=== PATIENT | female | born 1980 | race Caucasian/White ===

== ENCOUNTER 2019-02-05 16:11 | Emergency (ER) | payer OTHER, SELFPAY ==
[2019-02-05 16:12] VITALS: BP 134/80; PULSE 93; RESP 17; TEMP 36.8; O2SAT 97; BMI 42.7
--- NOTE | 2019-02-05 16:58 | ED.VIS.GEN ---
History of Present Illness Chief Complaint: Lower Extremity Injury Informant: Patient Onset: Month(s) - 1 Context: Gradual Onset Timing: Continuous Current Severity: Mild Maximum Severity: Moderate Narrative: Patient is a 38-year-old female with no significant past medical history presenting with 1 month of persistent left foot pain. She states it is at the base of her fourth and fifth toes. 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 Patient wears basic black sneakers at work. Patient has not been taking anything for the pain at home. She denies any injury to the area. She denies any associated numbness or tingling. The pain does not radiate. Is aching in nature. Patient finally came in today because family members were concerned of the persistence of the pain. Patient is a pain is worse with walking and standing on it. Is better with rest. She denies any associated swelling. She denies any other complaints at this time. Past Medical History - Allergies and Home Meds Allergies/Adverse Reactions: Allergies acetaminophen [From Vicodin] Adverse Reaction (Verified 02/05/19 16:12) Nausea hydrocodone [From Vicodin] Adverse Reaction (Verified 02/05/19 16:12) Nausea Penicillins [PCN] Adverse Reaction (Verified 02/05/19 16:12) Nausea Primary Care Physician: Vipul Garcia MD [Primary Care Provider] - Smoking Status: Never smoker Review of Systems All systems negative except as indicated Musculoskeletal: Reports: Extremity Pain - Left foot Physical Exam Vital Signs/Narrative: Vital Signs Temp Pulse Resp BP Pulse Ox 02/05/19 16:12 98.2 F 93 17 134/80 H 97 Inital Vital Signs reviewed: Yes General: Well nourished, Well developed, No Acute Distress Head: Normocephalic, Atraumatic Eyes: Perrl, EOMI ENT: Moist mucous membranes, No rhinorrhea Neck: Supple, Nontender Cardiovascular: Regular rate, Regular rhythm, No murmurs Respiratory: No distress, CTA bilaterally, Chest nontender Abdomen: Soft, Nontender, Nondistended, Normal bowel sounds Back: Nontender, Normal Inspection Extremities: No edema, - - Tenderness palpation over left fourth and fifth metacarpals, normal range of motion, no tenderness over the fibular head or ankle. No deformity, normal Castillo test. Negative for: Edema Skin: Normal color, No rash Neurological: Alert, Oriented x3, Cranial nerves II-XII grossly intact, Normal Strength, Normal Sensation Psychological: Normal affect, Normal Mood Diagnostic/Tx/Re-eval Diagnostic Data Foot X-Ray 02/05/19 17:05 IMPRESSION: No fracture or dislocation. Degenerative changes described above. Electronically Signed: Jonnie Sanders, at 17:49 EDT Tel , Service support , - Medical Decision Making She is evaluated for 1 month of atraumatic left foot pain. She appears nontoxic in no acute distress. She has normal vital signs. She declines any pain medication in the emergency room. Physical exam is notable for mild tenderness over the fourth and fifth metatarsals but no deformity or swelling. X-ray does not show any acute process. Patient does work on her feet and likely would benefit from more supportive shoes as well as rice therapy. She does not have evidence of acute fracture. I do not suspect any emergent process at this time. She is encouraged to follow-up with her primary care doctor if this persist. Patient is counseled on signs and symptoms requiring return to the emergency room. Patient verbalizes agreement and understand this plan. Patient discharged home in stable and improved condition. ED Disposition - Plan for ED Patient: Disposition: Home or Assisted Living Diagnosis: Left foot pain Instructions: Wearing Proper Shoes Referrals: Vipul Garcia MD [Primary Care Provider] - Additional Instructions: Try to stay off the foot is much as possible. Try to get more supportive shoes or better so insert. Take Ibuprofen as needed for pain. Follow-up with your primary care provider if this is not improved. Return to emergency room if you develop any worsening symptoms or develop a fever, significant swelling or difficulty walking.
--- NOTE | 2019-02-05 17:05 | RAD_ITS ---
STUDY: X-RAY - LEFT FOOT CLINICAL: Female, 38 years old. Pain TECHNIQUE: 3 view(s) of the foot. COMPARISON: None. FINDINGS: There is no evidence of fracture or dislocation. Mild degenerative changes are present at the first MTP joint. Plantar calcaneus spurring is present. Hypertrophic changes are present at the Achilles tendon insertion. There are no radiodense foreign bodies. RAD/Foot min 3 Views IMPRESSION: No fracture or dislocation. Degenerative changes described above. Electronically Signed: Jonnie Sanders, at 17:49 EDT Tel , Service support ,
== END 2019-02-05 18:13 | disposition home or self-care (01) ==
PROVIDERS: Emergency Provider Emergency Medicine; Family Provider Family Medicine; PCP Family Medicine
DX: M79.672 Pain in left foot (principal)
CPT/HCPCS: 73630; 99282

== ENCOUNTER 2019-04-25 15:52 | Emergency (ER) | payer OTHER, SELFPAY ==
[2019-04-25 15:53] VITALS: BP 129/84; PULSE 79; RESP 18; TEMP 36.6; O2SAT 99; BMI 42.8
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
== END 2019-04-25 17:49 | disposition home or self-care (01) ==
PROVIDERS: Emergency Provider Emergency Medicine; Family Provider Family Medicine; PCP Family Medicine
DX: S29.012A Strain of muscle and tendon of back wall of thorax, initial encounter (principal); S16.1XXA Strain of muscle, fascia and tendon at neck level, initial encounter; S60.212A Contusion of left wrist, initial encounter; V49.88XA Car occupant (driver) (passenger) injured in other specified transport accidents, initial encounter; Y93.89 Activity, other specified; Y92.410 Unspecified street and highway as the place of occurrence of the external cause
CPT/HCPCS: 72072; 73110; 99282

== ENCOUNTER 2022-01-17 21:21 | Emergency (ER) | payer OTHER, SELFPAY ==
[2022-01-17 21:22] VITALS: BP 120/96; PULSE 89; RESP 16; TEMP 36.4; O2SAT 98; BMI 42.0
--- NOTE | 2022-01-17 22:17 | US_ITS ---
INDICATION: pelvic pain-RLQ EXAMINATION: US Transvaginal Non-OB TECHNIQUE: Transvaginal (for optimal evaluation of the adnexa) pelvic ultrasound was performed. Grayscale, spectral waveform, and color flow Doppler evaluation of the adnexa. COMPARISON: None. FINDINGS: UTERUS: Anteverted. The uterus measures 11.5 x 6.4 x 4.1 cm. There is no uterine mass. There are subendometrial cysts. There are nabothian cysts. The endometrial stripe measures 1.8 cm in AP diameter which is within normal limits. RIGHT OVARY: Measures 2.7 x 2.5 x 2.1 cm. Non-enlarged, normal echogenicity. There is normal arterial inflow and venous outflow present in the right ovary. LEFT OVARY: Not visualized. FREE FLUID: None. US/Transvaginal Non- IMPRESSION: Nonvisualization of the left ovary. Otherwise normal uterus and right ovary. Electronically Signed: Solo Prescott MD at 23:44 EDT ,
[2022-01-17 22:31] LABS: Bacteria 0 SEEN /hpf (None Seen); Mucous, Urine 0 SEEN /hpf (<or=2+); Red Blood Cells-Urine 0 SEEN /hpf (0-5); Squamous Epithelial Cells - UA 0 SEEN /hpf (5-10); White Blood Cells 0 SEEN /hpf (0-5)
[2022-01-17 22:35] LABS: Color, Urine Yellow (Yellow); Glucose, Dipstick Normal (Normal); Ketone-Dipstick Negative (Negative); Leukocyte Esterase-Dipstick Negative /ul (Negative); Nitrite-Dipstick Negative (Negative); Occult Blood-Urine Negative /ul (Negative); Protein-Dipstick 15 mg/dl (Negative); Specific Gravity, Urine 1.025 (1.002-1.030); Urine Bilirubin Dipstick Negative (Negative); Urine Clarity Clear (Clear); Urine Urobilinogen Normal (Normal)
[2022-01-17 22:43] LABS: Internal QC Validated? YES +Cl - CLEAR BKGD; Pregnancy, Urine Negative Negative
[2022-01-17 22:44] LABS: Absolute Lymphocyte Count 3.16 X10^3/uL (0.83-4.51); Absolute Neutrophil Count 8.2 X10^3/uL (2.0-7.7); Basophil# 0.06 X10^3/uL; Basophil% 0.5 % (0-1); Eosinophil# 0.32 X10^3/uL; Eosinophils% 2.5 % (0-5); Hematocrit 40.3 % (37-47); Hemoglobin 13.5 g/dL (12.0-15.0); Lymphocyte # 3.16 X10^3/ul (0.83-4.51); Lymphocyte % 25.1 % (19-41); Mean Corp Hgb Conc 33.5 g/dL (32-36); Mean Corpuscular Hgb 29.5 pg (27.0-32.0); Mean Platelet Vol. 9.7 fl (6.2-12.0); Monocyte# 0.81 X10^3/uL; Monocyte% 6.4 % (0-10); NRBC Flagged by Analyzer 0 % (0-5); Neutrophil # 8.19 X10^3/uL (2.7-7.7); Neutrophil % 64.9 % (47-70); Platelet Count 268 K/mm3 (150-450); RBC Distribution Width CV 12.1 % (11.6-14.6); RBC Distribution Width SD 38.9 fl (35.1-43.9); Red Blood Count 4.58 M/mm3 (4.2-5.4); White Blood Count 12.6 K/mm3 (4.4-11.0)
[2022-01-17 23:02] LABS: AST(SGOT) 13 U/L (15-37); Alanine Aminotransfer ALT/SGPT 26 U/L (13-56); Albumin, Serum 3.7 g/dL (3.2-5.0); Alkaline Phosphatase 73 U/L (45-117); Anion Gap 6 (5-15); BUN 16 mg/dL (7-18); BUN/Creat Ratio 22.7 RATIO (10-20); Bilirubin, Direct 0.08 mg/dL (0.00-0.30); Calcium,Total 9.4 mg/dL (8.5-10.1); Chloride 107 mmol/L (98-107); EST Glomerular Filtration Rate 96 mL/min (>60); Est Glom Filt Rate - Afr Amer 117 mL/min (>60); Estimated Creatinine Clearance 74.43 ml/min; Globulin 3.6 g/dL (2.2-4.2); Glucose 98 mg/dL (74-106); Lipase 67 U/L (73-393); Potassium 4.5 mmol/L (3.5-5.1); Protein, Total 7.3 g/dL (6.4-8.2); Sodium Level 141 mmol/L (136-145)
[2022-01-17 23:40] VITALS: BP 128/84; PULSE 73; RESP 16; O2SAT 98
--- NOTE | 2022-01-18 00:15 | EDS_ITS ---
HPI History of Present Illness Chief Complaint: Abd Pain Narrative Narrative: Patient is a 41-year-old female with no significant past medical history. She states with her last 3 menstrual cycles she had increased pain in the right lower quadrant that would last 1 to 2 days and then resolve with passing of her menstrual cycle. She states today she was at work and while there developed sudden onset right-sided abdominal pain. She states she waited for the pain to pass but it did not do so and therefore she decided to come in for evaluation. Patient states there was no trauma or excessive activity. She states she is 2 weeks out from her menstrual cycle. She denies any fevers chills nausea vomiting diarrhea dysuria or concern for . She reports that upon arrival to the ER the pain has resolved. PFSH PFSH Medical History no medical history Home Medications NK 04/25/19 [History Last Taken Unknown] Allergy/AdvReac Type Severity Reaction Status Date / Time hydrocodone [From Vicodin] AdvReac Nausea Verified 01/17/22 21:26 Penicillins [PCN] AdvReac Nausea Verified 01/17/22 21:26 Social History Smoking Status: Never smoker ROS ROS ED Constitutional Constitutional ED: Denies chills or fever(s) ENT ENT ED: Denies sore throat Cardiovascular Cardiovascular: Denies chest pain Respiratory/Chest Respiratory/Chest: Denies cough or dyspnea Gastrointestinal Gastrointestinal: Reports abdominal pain; Denies diarrhea, nausea or vomiting Genitourinary Genitourinary ED: Denies dysuria or hematuria Musculoskeletal Musculoskeletal: Denies back pain or myalgias Integumentary Denies rash Neurologic Neurologic: Denies headache(s) Hematologic/Lymphatic Hematologic/Lymphatic: Denies easy bleeding or easy bruising EXAM Physical Exam Const Vital Signs: 01/17/22 21:22 01/17/22 23:40 Temperature 97.6 F L Temperature Source Temporal Pulse Rate 89 73 Respiratory Rate 16 16 Blood Pressure 120/96 H 128/84 H Blood Pressure Mean 104 98 Pulse Ox 98 98 Oxygen Delivery Method Room Air Room Air Positive well nourished, well developed and obese General Appearance ED: well developed Nutritional Appearance: obese HEENT Reports moist mucous membranes Eyes PERRL and EOMs intact bilaterally Neck supple Resp normal respiratory effort and clear to auscultation bilaterally Cardio regular rate and regular rhythm Rate: other Other Details: Radial pulses are plus 2 out of 4 bilaterally are equal and symmetric GI non-distended and no masses GI Narrative: Abdomen is obese soft and nondistended with normoactive bowel sounds. There is pain with palpation in the right upper mid and lower quadrant of the abdomen without voluntary guarding or rigidity. Negative heel strike psoas and obturator signs. Auscultation: normoactive bowel sounds Palpation: soft Back/Spine no CVA tenderness Extremity normal to inspection Neuro oriented x3, CN's II-XII intact bilaterally and no sensory deficits noted Sensorium / Orientation: alert Psych mental status grossly normal Skin no rashes or lesions noted MDM MDM MDM Narrative Medical decision making narrative: Patient presented to the ER with stable vitals and reported spontaneous resolution of her pain. On exam there was reproducible right-sided abdominal pain but it was not localized to the right lower quadrant and there was negative heel strike psoas and obturator signs. Patient had concern for ovarian cyst as there is a family history of this and she had this type of pain with her last 3 menstrual cycles. Therefore elected to perform a pelvic ultrasound and check basic abdominal labs. Labs showed slight leukocytosis at 12.6 but otherwise no clinically significant findings. The patient did not have CVA pain and there was no blood in her urine going against kidney stone. Also she had no signs of sterile pyuria and that coupled with no fever and spontaneous resolution of pain go against possible appendicitis. On reevaluation the patient's pain has resolved with palpation. We discussed possible CT scan to look for a kidney stone or intestinal infection but as the patient's pain has resolved and we have ruled out ovarian cyst which was her main concern she wishes to go home and will follow-up on an outpatient basis. Lab Data Attestation: I reviewed the patient's lab results. Labs: Laboratory Results - last 24 hr 01/17/22 01/17/22 01/17/22 22:20 22:25 22:25 WBC 12.6 H RBC 4.58 Hgb 13.5 Hct 40.3 MCV 88.0 MCH 29.5 MCHC 33.5 RDW Std Deviation 38.9 RDW Coeff of Ritika 12.1 Plt Count 268 MPV 9.7 Immature Gran % (Auto) 0.600 Neut % (Auto) 64.9 Lymph % (Auto) 25.1 Anson % (Auto) 6.4 Eos % (Auto) 2.5 Baso % (Auto) 0.5 Absolute Neuts (auto) 8.2 H Absolute Lymphs (auto) 3.16 Nucleated RBC % 0 Sodium 141 Potassium 4.5 Chloride 107 Carbon Dioxide 28.0 Anion Gap 6 BUN 16 Creatinine 0.70 Estim Creat Clear Calc 74.43 Est GFR (MDRD) Af Amer 117 Est GFR (MDRD) Non-Af 96 BUN/Creatinine Ratio 22.7 H Glucose 98 Calcium 9.4 Total Bilirubin 0.30 Direct Bilirubin 0.08 AST 13 L ALT 26 Alkaline Phosphatase 73 Total Protein 7.3 Albumin 3.7 Globulin 3.6 Lipase 67 L Urine Color Yellow Urine Clarity Clear Urine pH 5.0 Ur Specific Llewellyn 1.025 Urine Protein 15 H Urine Glucose (UA) Normal Urine Ketones Negative Urine Occult Blood Negative Urine Nitrite Negative Urine Bilirubin Negative Urine Urobilinogen Normal Ur Leukocyte Esterase Negative Urine RBC 0 SEEN Urine WBC 0 SEEN Ur Squamous Epith Cells 0 SEEN Urine Bacteria 0 SEEN Urine Mucus 0 SEEN Urine Test Negative Radiography Diagnostic Testing: Clinical Impression(s) from Imaging Studies Transvaginal US 01/17/22 22:17 IMPRESSION: Nonvisualization of the left ovary. Otherwise normal uterus and right ovary. Electronically Signed: Solo Prescott MD at 23:44 EDT , Discharge Plan Triage Chief Complaint: Abd Pain ED Provider: Norberto William Dx/Rx/DC Orders Clinical Impression: Nonspecific abdominal pain, Obesity Instructions: ED Abdominal Pain Unkn Cause Fem Prescriptions: No Action NK Primary Care Provider: Vipul Garcia Referrals: Vipul Garcia MD [Primary Care Provider] - Activity Restrictions/Additional Instructions: Please return to the ER should you have any further concerns. Disposition Disposition: Home, Self Care Discharge Date/Time: 01/18/22 00:22
== END 2022-01-18 00:22 | disposition home or self-care (01) ==
PROVIDERS: Emergency Provider Emergency Medicine; PCP Family Medicine; Visit Provider Emergency Medicine
DX: R10.11 Right upper quadrant pain (principal); Z68.41 Body mass index [BMI] 40.0-44.9, adult; R10.31 Right lower quadrant pain; E66.9 Obesity, unspecified
CPT/HCPCS: 76830; 80048; 80076; 81001; 81025; 83690; 85025; 93976; 99282; A4216

== ENCOUNTER 2023-10-11 20:42 | Emergency (ER) | payer OTHER, SELFPAY ==
[2023-10-11 20:43] VITALS: BP 141/101; PULSE 101; RESP 18; TEMP 35.7; O2SAT 97; BMI 45.2
--- NOTE | 2023-10-11 20:57 | EX.ED.DYSGE1 ---
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 It fell and several of the glasses struck her in the head around 7:30 pm. No LOC. She complains of headache and states she has vomited several times. She has no vision changes. No blood thinners. PFSH <LANG Avila - Last Filed: 10/11/23 21:34> PFSH Home Medications ?Medication ?Instructions ?Recorded ?Last Taken ?Type ondansetron 4 mg disintegrating 4 mg PO Q8H PRN PRN Nausea #10 tabs 10/11/23 Unknown Rx tablet Allergy/AdvReac Type Severity Reaction Status Date / Time hydrocodone (From Vicodin) AdvReac Nausea Verified 10/11/23 20:43 Penicillins (PCN) AdvReac Nausea Verified 10/11/23 20:43 Social History Smoking Status: Never smoker ROS <LANG Avila - Last Filed: 10/11/23 21:34> ROS ED ROS Narrative Eyes: Negative for visual change. GI: Positive for nausea, vomiting. Neuro: Negative for headache. EXAM <LANG Avila Last Filed: 10/11/23 21:34> Physical Exam Narrative Exam Narrative: CONST: Patient sitting in no acute distress. EYES: Normal inspection. PERRL, EOMI. ENT: Head normocephalic, two tiny scalp abrasions, no lacerations, no raccoon eyes or burks sign, no hemotympanum, no nasal septal hematoma, no CSF otorrhea or rhinorrhea. NECK: Normal inspection. No midline spinal tenderness, no step off or crepitus. RESP: No respiratory distress, CTAB. CVS: Regular rate and rhythm, no murmur, no gallop. SKIN: Color normal, no rash, warm, dry, intact. EXTREMITIES: Normal appearance, no pedal edema. NEURO: Alert and answering questions appropriately. PSYCH: Normal affect. Const Vital Signs: 10/11/23 20:43 Temperature 96.2 F L Temperature Source Temporal Pulse Rate 101 H Respiratory Rate 18 Blood Pressure 141/101 H Blood Pressure Mean 114 Pulse Ox 97 Oxygen Delivery Method Room Air <Dr. Gopal Daniel MD - Last Filed: 10/11/23 21:29> Physical Exam Const Vital Signs: 10/11/23 20:43 Temperature 96.2 F L Temperature Source Temporal Pulse Rate 101 H Respiratory Rate 18 Blood Pressure 141/101 H Blood Pressure Mean 114 Pulse Ox 97 Oxygen Delivery Method Room Air MDM <LANG Avila - Last Filed: 10/11/23 21:34> [facility] Narrative Medical decision making narrative: History gathered from: Patient and significant other Differential: Closed head injury, concussion I have personally performed a face to face assessment of the patient and have reviewed the SVEN Note. I performed a substantive portion of the visit including all aspects of the following. My syed findings include: History is [43-year-old female works at [employer]. Glasses came off a shelf and struck her in the head. No LOC. No blood thinners. She complains of a mild headache with nausea and vomiting. This occurred at work tonight. No other complaints.] Exam is [well-appearing 42-year-old female. Vital signs stable afebrile. H EENT exam pupils round react light. No facial or dental trauma. Minor abrasions on the scalp. No hematoma. No significant laceration. Neck nontender. Full range of motion. Back nontender. Lungs are clear. Heart regular rhythm. Abdomen soft nontender. Moving all 4 extremities. Normal motor strength. Normal dorsi plantarflexion. 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 Neurologically she is awake alert no focal motor deficits. GCS of 15. NIH is 0.] Medical Decision Making [patient be treated with Zofran. She has a normal neurologic exam. She had no LOC. No significant hematoma to her scalp or any hematoma to her scalp and is on no blood thinners. She does not need imaging. Zofran for nausea. Tylenol for pain. She will be discharged.] Other additions or changes: [None] <Dr. Gopal Daniel MD - Last Filed: 10/11/23 21:29> [facility] Narrative Medical decision making narrative: I have personally performed a face to face assessment of the patient and have reviewed the SVEN Note. I performed a substantive portion of the visit including all aspects of the following. My syed findings include: History is [43-year-old female works at [employer]. Glasses came off a shelf and struck her in the head. No LOC. No blood thinners. She complains of a mild headache with nausea and vomiting. This occurred at work tonight. No other complaints.] Exam is [well-appearing 42-year-old female. Vital signs stable afebrile. H EENT exam pupils round react light. No facial or dental trauma. Minor abrasions on the scalp. No hematoma. No significant laceration. Neck nontender. Full range of motion. Back nontender. Lungs are clear. Heart regular rhythm. Abdomen soft nontender. Moving all 4 extremities. Normal motor strength. Normal dorsi plantarflexion. 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 Neurologically she is awake alert no focal motor deficits. GCS of 15. NIH is 0.] Medical Decision Making [patient be treated with Zofran. She has a normal neurologic exam. She had no LOC. No significant hematoma to her scalp or any hematoma to her scalp and is on no blood thinners. She does not need imaging. Zofran for nausea. Tylenol for pain. She will be discharged.] Other additions or changes: [None] History & Record Review Discussion w/independent historian: Patient and Family Discharge Plan Triage Chief Complaint: Head Injury ED Midlevel Provider: Celia Horvath ED Provider: Gopal Daniel Dx/Rx/DC Orders Clinical Impression: Closed head injury, Encounter related to worker's compensation claim, Nausea & vomiting Instructions: ED Head Injury (Adult) Prescriptions: New ondansetron 4 mg tablet,disintegrating 4 mg PO Q8H PRN PRN (Reason: Nausea) Qty: 10 0RF Primary Care Provider: Vipul Garcia [facility]] - As Needed Vipul Garcia MD [Primary Care Provider] - Activity Restrictions/Additional Instructions: Ice to scalp. Tylenol and Motrin for pain. Follow-up with corporate care as needed. You have a closed head injury. May have a very mild concussion. Zofran as needed for nausea. If you do not need it you will need to take it at all. Print Language: Swazi Disposition Disposition: Home, Self Care
[2023-10-11] MEDS: Acetaminophen 500 MG Tablet 1000 MG PO (21:22)
[2023-10-11] MEDS: Ondansetron ODT 4 MG Tablet PO (21:25)
[2023-10-11] MEDS: proMETHazine 25 MG/ML Syringe IM (22:04)
[2023-10-11 22:23] VITALS: BP 154/88; PULSE 70; RESP 18; TEMP 36.2; O2SAT 98
== END 2023-10-11 22:24 | disposition home or self-care (01) ==
PROVIDERS: Emergency Provider Emergency Medicine; PCP Family Medicine; Visit Provider Emergency Medicine
DX: S00.01XA Abrasion of scalp, initial encounter (principal); R11.2 Nausea with vomiting, unspecified; W20.8XXA Other cause of strike by thrown, projected or falling object, initial encounter; Y92.511 Restaurant or cafe as the place of occurrence of the external cause; Y99.0 Civilian activity done for income or pay
CPT/HCPCS: 96372; 99283; J2405